=== PATIENT | female | born 1940 | race Caucasian/White ===

== ENCOUNTER → 2017-06-23 | Outpatient (CLI) | payer MEDICARE, BC ==
[2017-06-23 12:43] LABS: HEMATOCRIT 44.7 % (36.0-47.0); HEMOGLOBIN 14.6 g/dL (12.0-15.5); HGB HCT DIFFERENCE -0.9; MEAN CORPUSCULAR HEMOGLOBIN 26.6 pg (27.0-33.4); MEAN CORPUSCULAR HGB CONC 32.7 g/dL (32.0-36.0); MEAN CORPUSCULAR VOLUME 81 fl (80-97); RED BLOOD COUNT 5.49 10^6/uL (3.72-5.28); RED CELL DISTRIBUTION WIDTH 14.7 % (11.5-14.0); WHITE BLOOD COUNT 8.4 10^3/uL (4.0-10.5)
[2017-06-23 13:19] LABS: ERYTHROCYTE SEDIMENTATION RATE 23 mm/hr (0-30)
== END ==
LOC: OD 11:50
PROVIDERS: ATTEND Ophthalmology
DX: R51 Headache (principal)
CPT/HCPCS: 36415; 85027; 85652; 86140

== ENCOUNTER → 2017-07-09 | Outpatient (CLI) | payer MEDICARE, BC ==
--- NOTE | 2017-07-09 11:15 | RADIOLOGY REPORT (SQ) ---
EXAM DESCRIPTION: CAROTID DOPPLER COMPLETED DATE/TIME: 07/09/2017 10:50 am REASON FOR STUDY: OCCLUSION R51 HEADACHE I65.23 OCCLUSION AND STENOSIS OF BILATERAL CAROTID ARTERI ES R25.1 TREMOR, UNSPECIFIED COMPARISON: None. TECHNIQUE: Grayscale ultrasound, Doppler velocity and spectra, and color Doppler images acquired of the extra-cranial carotid and vertebral arteries. Images stored on PACS. LIMITATIONS: None. FINDINGS: RIGHT CAROTID CCA Velocities: Within normal limits. ICA Velocities Peak systolic 79cm/s. End diastolic 21cm/s. Proximal ICA/CCA peak systolic ratio 1.5. Spectra normal. No significant plaque. LEFT CAROTID CCA Velocities: Within normal limits. ICA Velocities Peak systolic 104cm/s. End diastolic 27cm/s. Proximal ICA/CCA peak systolic ratio 1.6. Spectra normal. No significant plaque. VERTEBRAL ARTERIES: Antegrade flow. Normal waveforms. SUBCLAVIAN ARTERIES: No finding. OTHER: No other significant finding. IMPRESSION: NO HEMODYNAMICALLY SIGNIFICANT STENOSIS. COMMENT: Quality ID #[id number]: Velocity criteria are extrapolated from the diameter data as defined by t he Society of Radiologists in Ultrasound Consensus Conference. Radiology 2003: 229; 340-346. TECHNICAL DOCUMENTATION: JOB ID: [id number] [employer]- All Rights Reserved
--- NOTE | 2017-07-09 13:27 | RADIOLOGY REPORT (SQ) ---
EXAM DESCRIPTION: MRI HEAD COMBO COMPLETED DATE/TIME: 07/09/2017 12:48 pm REASON FOR STUDY: I65.23 OCCLUSION AND STENOSIS OF BILATERAL CAROTID ARTERIES R51 HEADACHE I65.23 OCCLUSION AND STENOSIS OF BILATERAL CAROTID ARTERIES R25.1 TREMOR, UNSPECIFIED COMPARISON: None. TECHNIQUE: Multiplanar imaging includes noncontrasted T1, T2, FLAIR, Diffusion with ADC map and post gadolinium contrast T1 sequences. Images stored on PACS. CONTRAST TYPE AND DOSE: 10 mL Multihance. RENAL FUNCTION: GFR > 60. LIMITATIONS: None. FINDINGS: ANATOMY: No anomalies. Normal vascular flow voids. Pituitary fossa normal. CSF SPACES: Atrophy-induced prominence of CSF spaces and ventricles. CEREBRUM: High-signal intensity lesions scattered throughout the white matter on FLAIR imaging with d istribution suggesting chronic micro-vascular ischemic change. No evidence of hemorrhage, mass, extra axial fluid collection or acute ischemic change. No enhancing lesions. POSTERIOR FOSSA: No signal alteration. No hemorrhage. No edema, masses, or mass effect. Internal holger tory canals, cerebello-pontine angles, mastoids normal. No enhancing lesions. ORBITS: No masses. Globes normal. PARANASAL SINUSES: No fluid levels. Mucosa normal. DIFFUSION: Subtle focus of increased signal in the left frontal lobe near the falx. Series 5, image 26. OTHER: No other significant finding. IMPRESSION: Tiny, nonhemorrhagic watershed infarct left ORAL SURGERY ASSISTANT territory. EVIDENCE OF ACUTE STROKE: YES. LEFT ORAL SURGERY ASSISTANT TECHNICAL DOCUMENTATION: JOB ID: [id number]- All Rights Reserved
--- NOTE | 2017-07-09 13:29 | RADIOLOGY REPORT (SQ) ---
EXAM DESCRIPTION: MRA HEAD WITHOUT COMPLETED DATE/TIME: 07/09/2017 12:48 pm REASON FOR STUDY: I65.23 R51 HEADACHE I65.23 OCCLUSION AND STENOSIS OF BILATERAL CAROTID ARTERIES R25.1 TREMOR, UNSPECIFIED COMPARISON: None. TECHNIQUE: Axial 3-D [id number]-il-[id number] acquisition imaging performed through the brain in the area of t he [place] of [place]. Images reformatted using 3-D MIPS. LIMITATIONS: None. FINDINGS: SOURCE IMAGES: See separate report of the same date. 3-D MIP: No aneurysm. No occlusions. No significant stenosis. OTHER: No other significant finding. IMPRESSION: NORMAL MRA OF THE [place]. TECHNICAL DOCUMENTATION: JOB ID: [id number] [employer]- All Rights Reserved
== END ==
LOC: RAD 10:06
PROVIDERS: ATTEND Physician Assistant
DX: I65.23 Occlusion and stenosis of bilateral carotid arteries (principal); R51 Headache; R25.1 Tremor, unspecified; H53.9 Unspecified visual disturbance; Z79.01 Long term (current) use of anticoagulants
CPT/HCPCS: 70544; 70553; 93880

== ENCOUNTER → 2017-07-22 | Outpatient (CLI) | payer MEDICARE, BC ==
--- NOTE | 2017-07-22 17:27 | XCELERA REPORT ---
[address] [address] Transthoracic Echocardiogram Report Name: DEVORAH OLGUIN Age: 77 yrs Gender: Female : 1940 Patient Status: Outpatient Patient Location: Study Date: 07/22/2017 02:22 PM Height: 63 in Weight: 125 lb BSA: 1.6 m2 Reason For Study: CVA Ordering Physician: SALMA WELSH Performed By: Elvira Paris Interpretation Summary this is a very suboptimal study from the transthoracic windows. Recommend DELICIA to assist in looking for cardiogenic emboli as source for stroke LVEF is likely normal, but unable to comment on segmental wall motion abnormality. No LV enlargement.There is stage I LV diastolic dysfunction. Aoritic xclerosis without , andtrace AR. No MS and no MVP, no MR, and no LA enlargement. MMode/2D Measurements & Calculations RVDd: 2.6 cm LVIDd: 3.6 cm FS: 36.9 % Ao root diam: 2.8 cm IVSd: 0.89 cm LVIDs: 2.3 cm EDV(Teich): 56.1 ml LVPWd: 0.88 cmESV(Teich): 18.1 ml Ao root area: 6.1 cm2 EF(Teich): 67.7 % LA dimension: 2.3 cm LVOT diam: 1.9 cm LVOT area: 2.8 cm2 Doppler Measurements & Calculations MV E max lee: MV P1/2t max lee: Ao V2 max: LV V1 max P.0 cm/sec 71.6 cm/sec 115.8 cm/sec 4.0 mmHg MV A max lee: MV P1/2t: 67.8 msec Ao max PG: LV V1 max: 86.4 cm/sec MVA(P1/2t): 3.2 cm2 5.4 mmHg 99.8 cm/sec MV E/A: 0.82 MV dec slope: MARGARITA(V,D): 2.4 cm2 309.5 cm/sec2 PA V2 max: 55.9 cm/sec PA max P.2 mmHg Left Ventricle The left ventricle is grossly normal size. There is normal left ventricular wall thickness. The left ventricular ejection fraction is normal. Doppler measurements suggest impaired left ventricular relaxation, which is associated with grade I/IV or mild diastolic dysfunction. Not all wall segments were well visualized. The left ventricular apex is not well visualized. Right Ventricle The right ventricle is grossly normal size. Atria The right atrium is normal. The left atrial size is normal. Interarterial septum not well visualized and not well dopplered. Cannot comment on ASD/PFO presence. Mitral Valve The mitral valve is not well visualized. There is mild to moderate mitral annular calcification. There is no evidence of mitral valve prolapse. There is no mitral valve stenosis. There is no mitral regurgitation noted. Aortic Valve The aortic valve is sclerotic and shows some degree of functional abnormality. The aortic valve opens well. There is a trace amount of aortic regurgitation. Tricuspid Valve The tricuspid valve is not well visualized secondary to technical limitations. No tricuspid regurgitation. Great Vessels The aortic root is normal size. There is aortic root sclerosis/calcification. Effusions Small pericardial effusion. I WMSI = 1.00 % Normal = 100 Segments Size X - Cannot 1 - Normal 2 - 3 - Akinetic4 - 1-2 small Interpret Hypokinetic Dyskinetic 3-5 moderate 5 - 6-14 large Aneurysmal 15-16 diffuse : SALMA WELSH > Anthony Morales
== END ==
LOC: SP 14:02
PROVIDERS: ATTEND Psychiatry & Neurology Neurology
DX: I63.9 Cerebral infarction, unspecified (principal); I48.91 Unspecified atrial fibrillation
CPT/HCPCS: 93306

== ENCOUNTER 2018-08-21 17:31 | Emergency (ER) | payer MEDICARE, BC ==
[2018-08-21] MEDS ORDERED: NORMAL SALINE 1000 ML 1,000 ML IV ONE (18:13)
--- NOTE | 2018-08-21 18:29 | ER Document Report ---
ED Medical Screen (RME) - General Chief Complaint: Flu Symptoms Stated Complaint: FLU SYMPTOMS Time Seen by Provider: 08/21/18 18:11 Notes: Patient has been sick for the past few days. She has had sore throat, headache, fever up to 102 degrees, cough, no energy, weak, and poor appetite. Not aware of anyone that she is been close to that has had the flu. Has not had any vomiting or diarrhea. Patient has atrial fibrillation and is on Eliquis for blood thinning. TRAVEL OUTSIDE OF THE [place] IN LAST 30 DAYS: Yes - Related Data Allergies/Adverse Reactions: doxycycline [Doxycycline] Allergy (Verified 08/21/18 17:36) erythromycin base [Erythromycin Base] Allergy (Verified 08/21/18 17:36) Tetanus Vaccines and Toxoid [Tetanus] Allergy (Verified 08/21/18 17:36) Past Medical History - Past Medical History Cardiac Medical History: Reports: Hx Atrial Fibrillation - on eliquis, Hx Hypercholesterolemia, Hx Hypertension Pulmonary Medical History: Reports: Hx Asthma Renal/ Medical History: Denies: Hx Peritoneal Dialysis Past Surgical History: Reports: Hx Appendectomy, Hx Section - Immunizations Hx Diphtheria, Pertussis, Tetanus Vaccination: Yes Physical Exam - Vital signs Vitals: Temp Pulse BP Pulse Ox 100.6 F H 90 130/60 H 94 08/21/18 17:38 08/21/18 17:38 08/21/18 17:38 08/21/18 17:38 Course - Vital Signs Vital signs: Temp Pulse Resp BP Pulse Ox 100.6 F H 90 130/60 H 94 08/21/18 17:38 08/21/18 17:38 08/21/18 17:38 08/21/18 17:38 Doctor's Discharge - Discharge Referrals: RUBY ROLDAN PA-C [Primary Care Provider] - Follow up as needed
[2018-08-21 18:43] LABS: HEMATOCRIT 40.1 % (36.0-47.0); HEMOGLOBIN 13.4 g/dL (12.0-15.5); MEAN CORPUSCULAR HGB CONC 33.4 g/dL (32.0-36.0); MEAN CORPUSCULAR VOLUME 81 fl (80-97); PLATELET COUNT 202 10^3/uL (150-450); RED BLOOD COUNT 4.96 10^6/uL (3.72-5.28); RED CELL DISTRIBUTION WIDTH 14.3 % (11.5-14.0); WHITE BLOOD COUNT 7.7 10^3/uL (4.0-10.5)
[2018-08-21 19:00] LABS: ALANINE AMINOTRANSFERASE 18 U/L (9-52); ALKALINE PHOSPHATASE 97 U/L (38-126); ANION GAP 8 (5-19); ASPARTATE AMINO TRANSFERASE 35 U/L (14-36); BILIRUBIN,DIRECT 0.3 mg/dL (0.0-0.4); BILIRUBIN,TOTAL 0.7 mg/dL (0.2-1.3); BLOOD UREA NITROGEN 17 mg/dL (7-20); CALCIUM 9.3 mg/dL (8.4-10.2); CARBON DIOXIDE 27 mmol/L (22-30); CHLORIDE 98 mmol/L (98-107); GLUCOSE 154 mg/dL (75-110); POTASSIUM 3.2 mmol/L (3.6-5.0); SODIUM 132.8 mmol/L (137-145); TOTAL PROTEIN 7.2 g/dL (6.3-8.2)
[2018-08-21 19:03] LABS: A TYPE INFLUENZA AG NEGATIVE (NEGATIVE); B INFLUENZA AG NEGATIVE (NEGATIVE)
[2018-08-21 19:13] LABS: ABSOLUTE LYMPHOCYTES# (MANUAL) 0.5 10^3/uL (0.5-4.7); ABSOLUTE MONOCYTES # (MANUAL) 0.5 10^3/uL (0.1-1.4); ABSOLUTE NEUTROPHILS# (MANUAL) 6.7 10^3/uL (1.7-8.2); BASOPHILS % (MANUAL) 0 % (0-2); EOSINOPHILS % (MANUAL) 1 % (0-6); LYMPHOCYTES % (MANUAL) 5 % (13-45); MONOCYTES % (MANUAL) 6 % (3-13); SEGMENTED NEUTROPHILS % (MAN) 87 % (42-78); TOTAL CELLS COUNTED 100
[2018-08-21 19:15] LABS: ANISOCYTOSIS SLIGHT; OVALOCYTES SLIGHT; PLATELET COMMENT ADEQUATE; PLATELET LARGE PRESENT; POIKILOCYTOSIS SLIGHT; TOXIC VACUOLATION PRESENT
--- NOTE | 2018-08-21 19:26 | RADIOLOGY REPORT (SQ) ---
EXAM DESCRIPTION: CHEST 2 VIEWS COMPLETED DATE/TIME: 08/21/2018 7:03 pm REASON FOR STUDY: Cough and congestion and fever COMPARISON: 02/14/2015 EXAM PARAMETERS: NUMBER OF VIEWS: two views TECHNIQUE: Digital Frontal and Lateral radiographic views of the chest acquired. RADIATION DOSE: NA LIMITATIONS: none FINDINGS: LUNGS AND PLEURA: No opacities, masses or pneumothorax. No pleural effusion. MEDIASTINUM AND HILAR STRUCTURES: No masses or contour abnormalities. HEART AND VASCULAR STRUCTURES: Cardiomegaly. BONES: No acute findings. HARDWARE: None in the chest. OTHER: No other significant finding. IMPRESSION: Cardiomegaly without acute abnormality of the lungs. TECHNICAL DOCUMENTATION: JOB ID: [id number] [employer]- All Rights Reserved Reading location - IP/workstation name: [email or web address]
[2018-08-21 19:48] LABS: APPEARANCE,URINE SLIGHTLY-CLOUDY; BILIRUBIN,URINE NEGATIVE (NEGATIVE); COLOR,URINE YELLOW; GLUCOSE, URINE NEGATIVE (NEGATIVE); KETONES,URINE NEGATIVE (NEGATIVE); LEUKOCYTE ESTERASE,URINE SMALL (NEGATIVE); NITRITE,URINE NEGATIVE (NEGATIVE); PROTEIN,URINE NEGATIVE (NEGATIVE); URINE SPECIFIC GRAVITY 1.016
--- NOTE | 2018-08-21 20:15 | ER Document Report ---
ED General - General Chief Complaint: Flu Symptoms Stated Complaint: FLU SYMPTOMS Time Seen by Provider: 08/21/18 18:11 Notes: \Very pleasant 78-year-old female with atrial fibrillation on Eliquis and hypertension presents to the emergency department for weakness that started yesterday. Per patient and family she was in her bedroom and she slid herself down the bed and was found a very short period of time later on the floor. There was no fall, she did not hit her head and there was no loss of consciousness. Per patient she has had an intermittent nosebleed times 3 days every time she blows her nose. Per daughter's she has been suffering from congestion, cough, malaise, headache. She does endorse having chronic balance problems but denies dizziness. She denies confusion, shortness of breath, chest pain, abdominal pain, nausea, vomiting, diarrhea. She does endorse having symptoms of a UTI. TRAVEL OUTSIDE OF THE [place] IN LAST 30 DAYS: Yes - HPI Patient complains to provider of: weakness - Related Data Allergies/Adverse Reactions: doxycycline [Doxycycline] Allergy (Verified 08/21/18 17:36) erythromycin base [Erythromycin Base] Allergy (Verified 08/21/18 17:36) Tetanus Vaccines and Toxoid [Tetanus] Allergy (Verified 08/21/18 17:36) Past Medical History - General Information source: Patient, Relative - Social History Smoking Status: Unknown if Ever Smoked Family History: Reviewed & Not Pertinent, Other - sister has had ischemic colitis and DVT in her leg Patient has suicidal ideation: No Patient has homicidal ideation: No - Past Medical History Cardiac Medical History: Reports: Hx Atrial Fibrillation - on eliquis, Hx Hypercholesterolemia, Hx Hypertension Pulmonary Medical History: Reports: Hx Asthma Renal/ Medical History: Denies: Hx Peritoneal Dialysis Past Surgical History: Reports: Hx Appendectomy, Hx Section - Immunizations Hx Diphtheria, Pertussis, Tetanus Vaccination: Yes Hx Pneumococcal Vaccination: 08/25/09 Review of Systems - Review of Systems Constitutional: See HPI EENT: See HPI Cardiovascular: See HPI Respiratory: See HPI Gastrointestinal: See HPI Genitourinary: See HPI Female Genitourinary: No symptoms reported Musculoskeletal: No symptoms reported Skin: No symptoms reported Hematologic/Lymphatic: No symptoms reported Neurological/Psychological: See HPI Physical Exam - Vital signs Vitals: Temp Pulse BP Pulse Ox 100.6 F H 90 130/60 H 94 12/28/18 17:38 08/21/18 17:38 08/21/18 17:38 08/21/18 17:38 Interpretation: Normal - Notes Notes: Reviewed vital signs and nursing note as charted by RN. CONSTITUTIONAL: Well-appearing, well-nourished, acting appropriately for age HEAD: Normocephalic, atraumatic, no swelling EYES: PERRL, Conjunctivae clear, no drainage, EOMI, no scleral icterus ENT: External ears without lesions, External auditory canal is patent, TMs without erythema, landmarks clear and well visualized, no rhinorrhea, Pharynx without erythema or lesions, no tonsillar hypertrophy, airway patent, mucous membranes pink and moist NECK: Supple, no cervical lymphadenopathy, no masses CARD: Regular rate and rhythm, no murmurs, no rubs, no gallops, capillary refill < 2 seconds, symmetric pulses RESP: The lungs are clear to auscultation bilaterally, no wheezing, no rales, no rhonchi. Respiratory rate and effort are normal, normal chest excursion. No respiratory distress, no retractions, no stridor, no nasal flaring, no accessory muscle use. ABD/GI: Normal bowel sounds, non-distended, soft, non-tender, no rebound, no guarding, no palpable organomegaly EXT: Normal ROM in all joints, generalized weakness, non-tender to palpation, no effusions, no edema SKIN: Normal color for age and race, warm, dry, good turgor, no acute lesions noted NEURO: No facial asymmetry, moves all extremities equally, motor and sensory function intact, strength 4/5 bilateral upper extremities, strength 3/5 bilateral lower extremities, no focal neural deficits Course - Re-evaluation Re-evalutation: 08/21/18 20:26 Very pleasant 78-year-old female presents to the emergency department for weakness that started yesterday. In route EMS measured her temperature at 1 01.9, she was given 975 mg Tylenol p.o. and upon arrival her temperature was 100.6. She was well-appearing on clinical exam, neuro exam was normal, lungs were clear, abdomen soft, she did have some suprapubic tenderness to palpation. Chest x-ray normal showing no evidence of infiltrate or pathology, EKG unremarkable, she did have a mild hyponatremia that was unremarkable, hypokalemia, and urinalysis did show evidence of UTI. Plan is to initiate treatment with IV Rocephin. 08/21/18 21:07 Lactate returned at 1.1. No concern for septic shock secondary to urinary tract infection at this time. Will reassess patient after Rocephin 1 g IV infused. 08/21/18 23:07 Patient received Rocephin 1 g IV, tolerated. Had a lengthy discussion with patient regarding disposition, patient wished to go home. Initially, sent patient at the edge of the bed and her systolic blood pressure was 95, afterward s stood her up and systolic was 123. 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 Therefore, I have no concerns for orthostatic hypotension, her lactate being 1 and no laboratory evidence of dehydration or any derangements is reassuring. Shared decision making with patient and family was made to determine patient's ability to safely go home. Daughter said that she would stay with the patient overnight and assist her. Patient will go home on doxycycline 100 mg twice daily times 7 days. Patient was given strict return precautions. - Vital Signs Vital signs: Temp Pulse Resp BP Pulse Ox 98.7 F 90 10 L 116/66 97 08/21/18 20:25 08/21/18 17:38 08/21/18 23:01 08/21/18 23:01 08/21/18 23:01 - Laboratory Result Diagrams: 08/21/18 18:19 08/21/18 18:19 Laboratory results interpreted by me: 08/21/18 08/21/18 08/21/18 18:19 18:19 19:19 RDW 14.3 H Seg Neuts % (Manual) 87 H Lymphocytes % (Manual) 5 L Sodium 132.8 L Potassium 3.2 L Est GFR (Non-Af Amer) 55 L Glucose 154 H Urine Urobilinogen 2.0 H Ur Leukocyte Esterase SMALL H Discharge - Discharge Clinical Impression: Weakness, Sore throat Fever Qualifiers: Fever type: unspecified Qualified Code(s): R50.9 - Fever, unspecified UTI (urinary tract infection) Qualifiers: Urinary tract infection type: acute cystitis Hematuria presence: without hematuria Qualified Code(s): N30.00 - Acute cystitis without hematuria Condition: Stable Disposition: HOME, SELF-CARE Instructions: Acetaminophen, Urinary Tract Infection ([facility]) Additional Instructions: You are seen in the emergency department this evening for weakness that was most likely due to reduced oral intake and a viral illness. He also have a UTI which we are going to prescribe doxycycline that he should take twice a day for 7 days. If it any time you become more weak, you have one-sided weakness, confusion, severe headache, you pass out, difficulty breathing, chest pain, or any other worrisome conditions please immediately return to the emergency department. Prescriptions: Doxycycline Hyclate 100 mg PO BID #14 capsule Referrals: RUBY ROLDAN PA-C [ALLIED HEALTH PROFESSIONAL] - Follow up as needed
[2018-08-21] MEDS ORDERED: CEFTRIAXONE 1 GM/D5W RTU 1 GM/50 ML RTUPB IV ONE (20:29)
[2018-08-21 23:18] VITALS: BP 116/66
[2018-08-21] MEDS ORDERED: ACETAMINOPHEN 325 MG TABLET PO ONE (23:18)
--- NOTE | 2018-08-22 12:58 | EKG REPORT ---
SEVERITY:- ABNORMAL ECG - SINUS OR ECTOPIC ATRIAL RHYTHM NONSPECIFIC T ABNORMALITIES, DIFFUSE LEADS : Confirmed by: Chelsea Portillo 22-Aug-2018 12:57:28
== END 2018-08-21 23:30 | disposition home or self-care (01) ==
LOC: ER 17:31
DX: N30.00 Acute cystitis without hematuria (principal); R53.1 Weakness; J02.9 Acute pharyngitis, unspecified; R50.9 Fever, unspecified; I48.91 Unspecified atrial fibrillation; I10 Essential (primary) hypertension; E78.00 Pure hypercholesterolemia, unspecified; Z88.3 Allergy status to other anti-infective agents; Z79.02 Long term (current) use of antithrombotics/antiplatelets
CPT/HCPCS: 93005; 99284; 96361; 96365; 36415; 87040; 87086; 83605; 85025; 80053; 81001; 87804; 71046; 93010; A9270; J7030; J0696

== ENCOUNTER 2019-06-22 01:33 | Emergency (ER) | payer MEDICARE, BC ==
[2019-06-22 02:43] LABS: ABSOLUTE EOSINOPHILS # (AUTO) 0.1 10^3/uL (0.0-0.6); ABSOLUTE LYMPHOCYTES (AUTO) 2.2 10^3/uL (0.5-4.7); ABSOLUTE MONOCYTES (AUTO) 0.4 10^3/uL (0.1-1.4); ABSOLUTE NEUT (AUTO) 5.1 10^3/uL (1.7-8.2); BASOPHILS % (AUTO) 0.5 % (0-2); EOSINOPHILS % (AUTO) 1.1 % (0-6); HEMATOCRIT 40.2 % (36.0-47.0); HEMOGLOBIN 13.1 g/dL (12.0-15.5); LYMPHOCYTES % (AUTO) 28.2 % (13-45); MEAN CORPUSCULAR HEMOGLOBIN 26.4 pg (27.0-33.4); MEAN CORPUSCULAR HGB CONC 32.5 g/dL (32.0-36.0); MEAN CORPUSCULAR VOLUME 81 fl (80-97); MONOCYTES % (AUTO) 5.3 % (3-13); PLATELET COUNT 230 10^3/uL (150-450); RED BLOOD COUNT 4.95 10^6/uL (3.72-5.28); RED CELL DISTRIBUTION WIDTH 14.9 % (11.5-14.0); SEGMENTED NEUTROPHILS % (AUTO) 64.9 % (42-78); TOTAL CELLS COUNTED % (AUTO) 100 %; WHITE BLOOD COUNT 7.9 10^3/uL (4.0-10.5)
[2019-06-22 02:54] LABS: INTERNATIONAL RATION (INR) 1.48; PROTHROMBIN TIME 18.1 SEC (11.4-15.4)
[2019-06-22 02:55] LABS: PARTIAL THROMBOPLASTIN TIME 36.1 SEC (23.5-35.8)
[2019-06-22 03:05] LABS: ALBUMIN 4.1 g/dL (3.5-5.0); ALKALINE PHOSPHATASE 124 U/L (38-126); ANION GAP 10 (5-19); ASPARTATE AMINO TRANSFERASE 31 U/L (14-36); BILIRUBIN,DIRECT 0.2 mg/dL (0.0-0.4); BILIRUBIN,TOTAL 0.5 mg/dL (0.2-1.3); BLOOD UREA NITROGEN 21 mg/dL (7-20); CALCIUM 9.7 mg/dL (8.4-10.2); CARBON DIOXIDE 28 mmol/L (22-30); CHLORIDE 100 mmol/L (98-107); GLUCOSE 135 mg/dL (75-110); POTASSIUM 3.2 mmol/L (3.6-5.0); TOTAL PROTEIN 6.9 g/dL (6.3-8.2)
[2019-06-22] MEDS ORDERED: POTASSIUM CHLORIDE 10 MEQ CAPSULE.ER PO ONE (04:42)
--- NOTE | 2019-06-22 04:48 | RADIOLOGY REPORT (SQ) ---
CLINICAL HISTORY: vaginal bleeding COMPARISON: None. TECHNIQUE: US PELVIS TRANSVAGINAL on 06/22/2019 3:11 AM CDT FINDINGS: The uterus measures 6.8 cm. Endometrium measures 4 mm. The ovaries are not seen. IMPRESSION: Somewhat limited study. No significant abnormalities.
[2019-06-22 05:12] LABS: APPEARANCE,URINE CLOUDY; BILIRUBIN,URINE NEGATIVE (NEGATIVE); COLOR,URINE YELLOW; GLUCOSE, URINE NEGATIVE (NEGATIVE); KETONES,URINE NEGATIVE (NEGATIVE); LEUKOCYTE ESTERASE,URINE LARGE (NEGATIVE); NITRITE,URINE NEGATIVE (NEGATIVE); PROTEIN,URINE NEGATIVE (NEGATIVE); UROBILINOGEN,URINE NEGATIVE mg/dL (<2.0)
--- NOTE | 2019-06-22 05:15 | ER Document Report ---
ED General - General Chief Complaint: Vaginal Bleeding Stated Complaint: BLOODY DISCHARGE Time Seen by Provider: 06/22/19 02:27 Primary Care Provider: JOANN PORTILLO MD [Primary Care Provider] - Follow up as needed TRAVEL OUTSIDE OF THE [place] IN LAST 30 DAYS: Yes - HPI Notes: Patient is an 79-year-old female who presents to the emergency department for evaluation. She is a very difficult historian. In short, she states she passed an "egg sized" clot from her vagina earlier tonight. She states she had abdominal pain for some time. She states this was following a colonoscopy where they found a large polyp back in September. Patient also states that recently she did have her gallbladder done as well. She states this pain feels different. She denies any fevers or chills. No dysuria. No hematuria. Normal bowel movements. No other acute complaints or concerns. She describes a cramping type pain in her lower abdomen, nothing seems to make it better or wor se. She currently rates it a 1 out of 5. - Related Data Allergies/Adverse Reactions: doxycycline [Doxycycline] Allergy (Verified 08/21/18 17:36) erythromycin base [Erythromycin Base] Allergy (Verified 08/21/18 17:36) Tetanus Vaccines and Toxoid [Tetanus] Allergy (Verified 08/21/18 17:36) Home Medications: Reviewed, please see notes Past Medical History - General Information source: Patient, Relative - Social History Smoking Status: Never Smoker Family History: Reviewed & Not Pertinent, Other - sister has had ischemic colitis and DVT in her leg Patient has suicidal ideation: No Patient has homicidal ideation: No - Past Medical History Cardiac Medical History: Reports: Hx Atrial Fibrillation - on eliquis, Hx Hypercholesterolemia, Hx Hypertension Pulmonary Medical History: Reports: Hx Asthma Renal/ Medical History: Denies: Hx Peritoneal Dialysis Past Surgical History: Reports: Hx Appendectomy, Hx Section - Immunizations Hx Diphtheria, Pertussis, Tetanus Vaccination: Yes Hx Pneumococcal Vaccination: 08/25/09 Review of Systems - Review of Systems Constitutional: No symptoms reported EENT: No symptoms reported Cardiovascular: No symptoms reported Respiratory: No symptoms reported Gastrointestinal: See HPI Genitourinary: No symptoms reported Female Genitourinary: See HPI Musculoskeletal: No symptoms reported Skin: No symptoms reported Neurological/Psychological: No symptoms reported Physical Exam - Notes Notes: Vital signs reviewed, please refer to chart. Head is normocephalic, atraumatic. Pupils equal round, reactive to light. Neck is supple without meningismus. Heart is regular rate and rhythm. Lungs are clear to auscultation bilaterally. Abdomen is soft, nontender, normoactive bowel sounds throughout. Extremities without cyanosis, clubbing. Posterior calves are nontender. Peripheral pulses are equal. Skin is warm and dry. Pelvic exam is performed with SUNDAR Torres present. Normal external genitalia, no clear vaginal lesions. Cervix is closed, scant amount of blood noted. No significant tenderness. Course - Re-evaluation Re-evalutation: 06/22/19 05:13 Presents to the emergency department for evaluation of abnormal vaginal bleeding. She did have a scant amount of vaginal blood noted, no active bleeding at the time of my evaluation. Her hemoglobin is stable. Her vitals are unremarkable. Her ultrasound revealed a normal endometrial thickness. This will require follow-up by gynecology. I will refer her to our on-call CRITICAL CARE NURSE SPECIALIST. Potassium is found to be low. I did order oral replacement of potassium, but the patient refused. She states this makes her sick to her stomach. She is told to eat some high potassium foods and follow-up with her primary care provider. She is amenable with this plan. She is to return to the emergency department with worsening or new concerning symptoms of any sort. 06/22/19 05:30 Urinalysis revealed findings consistent with UTI. Patient is tolerated Keflex well in the past. She is given her first dose here, will send her home with a prescription for same. She is to have her urine followed up in primary care as well. - Laboratory Result Diagrams: 06/22/19 02:09 06/22/19 02:09 Laboratory results interpreted by me: 06/22/19 06/22/19 06/22/19 02:09 02:09 02:09 MCH 26.4 L RDW 14.9 H PT 18.1 H APTT 36.1 H Potassium 3.2 L BUN 21 H Glucose 135 H Urine Blood Ur Leukocyte Esterase 06/22/19 04:25 MCH RDW PT APTT Potassium BUN Glucose Urine Blood MODERATE H Ur Leukocyte Esterase LARGE H - Diagnostic Test Radiology reviewed: Reports reviewed Radiology results interpreted by me: 06/22/19 05:14 Transvaginal US 06/22/19 03:11 IMPRESSION: Somewhat limited study. No significant abnormalities. Discharge - Discharge Clinical Impression: Abnormal vaginal bleeding in postmenopausal patient, Hypokalemia, UTI (urinary tract infection) Condition: Stable Disposition: HOME, SELF-CARE Instructions: Hypokalemia ([facility]), Vaginal Bleeding ([facility]) Additional Instructions: It is important that you seek out further evaluation with CRITICAL CARE NURSE SPECIALIST for this abnormal vaginal bleeding. If you develop worsened bleeding or any other new or concerning symptoms, please return immediately to the emergency department for reevaluation. Eat high potassium foods, and have your potassium rechecked with primary care next week. Because of the Keflex as directed until it is gone. Have your urine rechecked to evaluate for clearing. Referrals: JOANN PORTILLO MD [Primary Care Provider] - Follow up as needed ROCHELLE MELENDREZ MD [ACTIVE STAFF] - Follow up as needed
[2019-06-22] MEDS ORDERED: CEPHALEXIN 500 MG CAPSULE PO ONE (05:30)
[2019-06-22 06:07] VITALS: BP 138/66
== END 2019-06-22 06:06 | disposition home or self-care (01) ==
LOC: ER 01:33
DX: N95.0 Postmenopausal bleeding (principal); N39.0 Urinary tract infection, site not specified; E87.6 Hypokalemia; R10.9 Unspecified abdominal pain; I48.91 Unspecified atrial fibrillation; E78.00 Pure hypercholesterolemia, unspecified; I10 Essential (primary) hypertension; Z79.01 Long term (current) use of anticoagulants; Z88.3 Allergy status to other anti-infective agents
CPT/HCPCS: 36415; 76830; 80053; 81001; 83690; 85025; 85610; 85730; 93976; 99285